=== PATIENT | female | born 1960 | race Caucasian/White ===

== ENCOUNTER 2021-08-09 15:28 | Outpatient (CLI) | payer MEDICARE, MEDICAID, SELFPAY ==
--- NOTE | 2021-08-09 15:35 | XRR_ITS ---
PROCEDURE INFORMATION: Exam: XR Right Ribs Exam date and time: 08/09/2021 3:35 PM Age: 61 years old Clinical indication: Pain and injury or trauma; Fall; Rib area; Sprain or strain; Painful respiration; Additional info: Pain after fall TECHNIQUE: Imaging protocol: XR Right ribs. Views: 2 views. COMPARISON: CR Chest 1 [place] [id number] 04/21/2018 10:42 AM FINDINGS: Bones/joints: Subtle cortical irregularity in the lateral right 5th rib. The other bones appear intact.. Soft tissues: Normal. XR/XR ribs RT 2V* [id number] IMPRESSION: Age indeterminate lateral right 5th rib fracture.
== END 2021-08-09 15:29 | disposition home or self-care (01) ==
LOC: RAD 15:33
PROVIDERS: PCP Nurse Practitioner; Visit Provider Nurse Practitioner
DX: S22.31XA Fracture of one rib, right side, initial encounter for closed fracture (principal); W19.XXXA Unspecified fall, initial encounter
CPT/HCPCS: 71100

== ENCOUNTER 2022-01-22 13:20 | Emergency (ER) | payer MEDICARE, MEDICAID, SELFPAY ==
[2022-01-22 13:26] VITALS: BP 162/98; PULSE 84; RESP 20; TEMP 36.6; O2SAT 97; BMI 23.1
[2022-01-22 13:55] VITALS: BP 129/83; PULSE 73; RESP 16; O2SAT 96
--- NOTE | 2022-01-22 13:55 | ED_ITS ---
Documented by User: PRECIOUS Padilla 01/22/22 15:30 HPI - Abdominal Pain General: Chief Complaint: Abdominal Pain Stated Complaint: abdomen pain , back pain Time Seen by Provider: 01/22/22 13:23 History of Present Illness: Patient is a 61-year-old female comes to the ED with abdominal pain and nausea. Symptoms started approximately 1 week ago. Abdominal pain is located in the periumbilical and epigastric region of the abdomen and it radiates to her back. She rates the pain currently a 6 out of 10. She is nauseous and says eating any food causes worsening pain and nausea. Denies any fevers, emesis, denies any blood in the stool, diarrhea, constipation or bladder symptoms. She has never had abdominal pain like this before. History of 4 C-sections and an appendectomy. Patient is a daily tobacco smoker and she also has 3 cups of coffee daily as well. History of acid reflux, but is not on any medication for acid reflux currently. Associated Symptoms: Reports nausea; Denies chills, constipation, diarrhea, dysuria, fever(s), hematochezia, hematuria and vomiting Review of Systems Const: Denies: fever(s), chills or fatigue Eyes: Denies: change in vision or eye discomfort ENMT: Denies: throat pain, odynophagia, nasal discharge or nasal congestion Card: Denies: chest pain, palpitations, edema, swelling of feet/ankles, dyspnea on exertion or orthopnea Resp: Denies: dyspnea, productive cough or non-productive cough GI: Reports: abdominal pain and nausea; Denies: vomiting, diarrhea, constipation or hematochezia : Denies: flank pain, dysuria or hematuria Musc: Denies: neck pain, back pain or extremity swelling Skin/Breast: Denies: rash or new lesions Neuro: Denies: headache(s), numbness in extremities or weakness in extremities PFSH ED PFSH: Medical History No pertinent family history Surgical History History of appendectomy History of section Social History Smoking and tobacco status: current every day smoker Physical Exam Const: COMMON NORMALS: no acute distress, patient oriented x3, healthy appearing and alert GENERAL APPEARANCE: cooperative and comfortable HENMT: COMMON NORMALS: normocephalic HEAD & SCALP: normocephalic MOUTH: Normal oral and palatal mucosa present THROAT: posterior oropharynx normal and uvula midline Eye: COMMON NORMALS: Equal, round and reactive pupils present and conjunctivae normal CONJUNCTIVA: Yes conjunctivae normal PUPIL: Yes Equal, round and reactive pupils present Neck/C-Spine: COMMON NORMALS: supple GENERAL: Yes normal visual inspection Resp: COMMON NORMALS: normal respiratory effort, No retractions, No use of accessory muscles and clear to auscultation bilaterally AUSCULTATION: clear to auscultation bilaterally Cardio: COMMON NORMALS: regular rate, regular rhythm, S1 normal heart sound present, S2 normal heart sound present, No gallops present (Cardio), No clicks present (Cardio), No murmurs present (Cardio) and Peripheral pulses 2+ t hroughout RATE: regular rate RHYTHM: regular rhythm HEART SOUNDS: S1 normal heart sound present and S2 normal heart sound present PERIPHERAL PULSES: Peripheral pulses 2+ throughout GI: COMMON NORMALS: Normal to inspection, nondistended, normoactive bowel sounds present, Soft to palpation and no masses PALPATION: Yes Soft to palpation, Yes Tenderness to palpation present (GI) Details: other ( epigastric and periumbilical mild tenderness) and No Guarding due to palpation present (GI) : COMMON NORMALS: Yes no CVA tenderness BLADDER/KIDNEY EXAM: Yes no CVA tenderness Back/Pelvis: COMMON NORMALS: no CVA tenderness Extremity: COMMON NORMALS: normal to inspection Neuro: COMMON NORMALS: patient oriented x3 SENSORIUM/ORIENTATION: Yes alert GAIT: Yes Normal gait present Skin: GENERAL SKIN EXAM: dry skin Course Vital Signs: Vital signs: Vital Signs Temperature 97.9 F 01/22/22 13:26 Pulse Rate 73 01/22/22 15:50 Respiratory Rate 16 01/22/22 15:50 Blood Pressure 129/83 01/22/22 15:50 Pulse Oximetry 96 01/22/22 15:50 MDM - Abdominal Pain Medical Decision Making Patient is a 61-year-old female who comes to the ED with abdominal pain. Abdominal pain is in the periumbilical/epigastric region and radiates to her back. Pains been going on now for a week and she describes it as mild to moderate pain rated at 6 out of 10 here in the ED. Worsens after eating food. Denies any vomiting but endorses nausea. Vitals are stable. Exam of patient shows a healthy nontoxic 61-year-old female in no acute distress or pain. She has some mild tenderness in the epigastric/periumbilical region of the abdomen with no guarding noted. Labs are unremarkable. CT of abdomen pelvis showed no acute findings. Abdominal pain likely due to gastritis. She is stable for discharge home and outpatient treatment with pantoprazole and some Zofran for nausea. She was told to follow-up with her PCP in the next week for reevaluation. Return to ED precautions given. Patient understood and agreed with plan. Lab Data I reviewed the patient's lab results. : 01/22/22 14:14 01/22/22 14:14 Labs/Radiology: Radiology Impressions Abdomen/Pelvis CT 01/22/22 14:32 IMPRESSION: 1. No acute findings. 2. Incidental findings above. Laboratory Results WBC 8.5 10^3/uL (4.0-10.0) 01/22/22 14:14 RBC 5.07 10^6/uL (4.1-5.3) 01/22/22 14:14 Hgb 14.7 g/dL (11.5-15.3) 01/22/22 14:14 Hct 44.1 % (37.0-47.0) 01/22/22 14:14 MCV 87.0 fl (81-99) 01/22/22 14:14 MCH 29.0 pg (28.0-34.0) 01/22/22 14:14 MCHC 33.3 g/dL (30.0-36.0) 01/22/22 14:14 RDW 13.7 % (12.1-15.1) 01/22/22 14:14 Plt Count 216 10^3/cmm (130-400) 01/22/22 14:14 MPV 9.8 fL (7.4-10.4) 01/22/22 14:14 Neut % (Auto) 62.9 % 01/22/22 14:14 Lymph % (Auto) 25.8 % 01/22/22 14:14 [place] % (Auto) 8.0 % 01/22/22 14:14 Eos % (Auto) 2.6 % 01/22/22 14:14 Baso % (Auto) 0.5 % 01/22/22 14:14 Neut # (Auto) 5.33 10^3/uL (1.8-7.7) 01/22/22 14:14 Lymph # (Auto) 2.2 10^3/uL (0.8-4.8) 01/22/22 14:14 [place] # (Auto) 0.7 10^3/uL (0.2-0.9) 01/22/22 14:14 Eos # (Auto) 0.2 10^3/uL (0.0-0.8) 01/22/22 14:14 Baso # (Auto) 0.0 10^3/uL (0.0-0.1) 01/22/22 14:14 Nucleated RBC % (auto) 0 % 01/22/22 14:14 Nucleated RBCs # 0.0 /100WBC 01/22/22 14:14 Sodium 137 mmol/L (136-145) 01/22/22 14:14 Potassium 4.0 mmol/L (3.5-5.1) 01/22/22 14:14 Chloride 101 mmol/L (98-107) 01/22/22 14:14 Carbon Dioxide 23 mmol/L (22-29) 01/22/22 14:14 Anion Gap 17.0 (5-19) 01/22/22 14:14 BUN 9 mg/dL (8-23) 01/22/22 14:14 Creatinine 0.5 mg/dL (0.5-0.9) 01/22/22 14:14 GFR Calculation 124.6 mL/min (90-130) 01/22/22 14:14 Glucose 102 mg/dL (65-115) 01/22/22 14:14 Calculated Osmolality 283 mOsm/kg (285-295) L 01/22/22 14:14 Calcium 9.2 mg/dL (8.5-10.5) 01/22/22 14:14 Total Bilirubin 0.3 mg/dL (0.15-1.2) 01/22/22 14:14 AST 30 U/L (0-32) 01/22/22 14:14 ALT 41 U/L (0-33) H 01/22/22 14:14 Alkaline Phosphatase 71 IU/L (35-105) 01/22/22 14:14 Total Protein 7.1 g/dL (6.6-8.7) 01/22/22 14:14 Albumin 4.2 g/dL (3.5-5.2) 01/22/22 14:14 Globulin 2.9 g/dL (1.3-4.6) 01/22/22 14:14 Lipase 22 U/L (13-60) 01/22/22 14:14 Urine Color Straw (Yellow) 01/22/22 14:01 Urine Appearance Clear (CLEAR) 01/22/22 14:01 Urine pH 7 (5-7) 01/22/22 14:01 Ur Specific [place] 1.000 (1.005-1.030) L 01/22/22 14:01 Urine Protein Neg (Negative) 01/22/22 14:01 Urine Glucose (UA) Norm (Normal) 01/22/22 14:01 Urine Ketones Negative (Negative) 01/22/22 14:01 Urine Blood Neg (Negative) 01/22/22 14:01 Urine Nitrate Negative (Negative) 01/22/22 14:01 Urine Bilirubin Neg (Negative) 01/22/22 14:01 Urine Urobilinogen Norm mg/dL (Negative) 01/22/22 14:01 Ur Leukocyte Esterase Negative (Negative) 01/22/22 14:01 Discharge Plan Discharge Patient Disposition: Home Clinical Impression: Abdominal pain Qualifiers: Abdominal location: epigastric Qualified Code(s): R10.13 - Epigastric pain Condition: Stable Prescriptions: New pantoprazole 40 mg tablet,delayed release (DR/EC) 40 mg PO DAILY 28 Days Qty: 30 0RF ondansetron 4 mg tablet,disintegrating 4 mg PO Q8H PRN (Reason: nausea and vomiting) Qty: 15 0RF No Action albuterol sulfate 90 mcg/actuation HFA aerosol inhaler 2 puff inhalation QID PRN (Reason: Shortness Of Breath) 0RF atorvastatin 40 mg tablet 40 mg PO DAILY 0RF ipratropium-albuterol 0.5 mg-3 mg(2.5 mg base)/3 mL solution for nebulization 3 ml INHALATION Q6H PRN (Reason: Shortness Of Breath) 0RF lorazepam 0.5 mg tablet 0.5 mg PO TID PRN (Reason: Anxiety) 0RF Breo Ellipta 100-25 mcg/dose blister with device 1 ea INHALATION DAILY 0RF Discharge Orders: Discharge ED (Routine); Ordered 01/22/22 Ordered By: Jered Lee Referrals: Ling Sams FNP [Nurse Practitioner] - Discharge Diet: Regular Discharge Activity: Increase activity as tolerated Patient Instructions: Gastritis (ED), GERD (Gastroesophageal Reflux Disease) (DC), Abdominal Pain (ED) Activity Restrictions/Additional Instructions: Follow-up with medical provider as directed in the next week for reevaluation. Take medications as prescribed. Return to the ER or your medical provider if condition worsens. Please read and understand discharge instructions. Thank you for choosing [facility] for your healthcare needs today. Please realize this is an emergency room and that we are providing you with a medical screening exam and this may not be complete and all inclusive of all the testing and or work up that you may need to determine your ailment or severity of your illness. It is very important that you follow up as instructed or that you return to the Emergency Department should you have concerns or if your condition changes or worsens in any way. Coding Level of Care Code ED Informatics Nurse Specialist for [facility] Exam Comprehensive Documented by User: Terence Rollins DO 01/25/22 07:19 HPI - Abdominal Pain General: Chief Complaint: Abdominal Pain Stated Complaint: abdomen pain , back pain Time Seen by Provider: 01/22/22 13:23 [facility] ED PFSH: Medical History No pertinent family history Surgical History History of appendectomy History of section Social History Smoking and tobacco status: current every day smoker Course Vital Signs: Vital signs: Vital Signs Temperature 97.9 F 01/22/22 13:26 Pulse Rate 73 06/03/22 15:50 Respiratory Rate 16 01/22/22 15:50 Blood Pressure 129/83 01/22/22 15:50 Pulse Oximetry 96 01/22/22 15:50 MDM - Abdominal Pain Medical Decision Making Patient is a 61-year-old female who comes to the ED with abdominal pain. Abdominal pain is in the periumbilical/epigastric region and radiates to her b ack. Pains been going on now for a week and she describes it as mild to moderate pain rated at 6 out of 10 here in the ED. Worsens after eating food. Denies any vomiting but endorses nausea. Vitals are stable. Exam of patient shows a healthy nontoxic 61-year-old female in no acute distress or pain. She has some mild tenderness in the epigastric/periumbilical region of the abdomen with no guarding noted. Labs are unremarkable. CT of abdomen pelvis showed no acute findings. Abdominal pain likely due to gastritis. She is stable for discharge home and outpatient treatment with pantoprazole and some Zofran for nausea. She was told to follow-up with her PCP in the next week for reevaluat ion. Return to ED precautions given. Patient understood and agreed with plan. Chart reviewed and patient discussed with midlevel. Agree with assessment and plan. Lab Data : 01/22/22 14:14 01/22/22 14:14 Labs/Radiology: Radiology Impressions Abdomen/Pelvis CT 01/22/22 14:32 IMPRESSION: 1. No acute findings. 2. Incidental findings above. Laboratory Results WBC 8.5 10^3/uL (4.0-10.0) 01/22/22 14:14 RBC 5.07 10^6/uL (4.1-5.3) 01/22/22 14:14 Hgb 14.7 g/dL (11.5-15.3) 01/22/22 14:14 Hct 44.1 % (37.0-47.0) 01/22/22 14:14 MCV 87.0 fl (81-99) 01/22/22 14:14 MCH 29.0 pg (28.0-34.0) 01/22/22 14:14 MCHC 33.3 g/dL (30.0-36.0) 01/22/22 14:14 RDW 13.7 % (12.1-15.1) 01/22/22 14:14 Plt Count 216 10^3/cmm (130-400) 01/22/22 14:14 MPV 9.8 fL (7.4-10.4) 01/22/22 14:14 Neut % (Auto) 62.9 % 01/22/22 14:14 Lymph % (Auto) 25.8 % 01/22/22 14:14 [place] % (Auto) 8.0 % 01/22/22 14:14 Eos % (Auto) 2.6 % 01/22/22 14:14 Baso % (Auto) 0.5 % 01/22/22 14:14 Neut # (Auto) 5.33 10^3/uL (1.8-7.7) 01/22/22 14:14 Lymph # (Auto) 2.2 10^3/uL (0.8-4.8) 01/22/22 14:14 [place] # (Auto) 0.7 10^3/uL (0.2-0.9) 01/22/22 14:14 Eos # (Auto) 0.2 10^3/uL (0.0-0.8) 01/22/22 14:14 Baso # (Auto) 0.0 10^3/uL (0.0-0.1) 01/22/22 14:14 Nucleated RBC % (auto) 0 % 01/22/22 14:14 Nucleated RBCs # 0.0 /100WBC 01/22/22 14:14 Sodium 137 mmol/L (136-145) 01/22/22 14:14 Potassium 4.0 mmol/L (3.5-5.1) 01/22/22 14:14 Chloride 101 mmol/L (98-107) 01/22/22 14:14 Carbon Dioxide 23 mmol/L (22-29) 01/22/22 14:14 Anion Gap 17.0 (5-19) 01/22/22 14:14 BUN 9 mg/dL (8-23) 01/22/22 14:14 Creatinine 0.5 mg/dL (0.5-0.9) 01/22/22 14:14 GFR Calculation 124.6 mL/min (90-130) 01/22/22 14:14 Glucose 102 mg/dL (65-115) 01/22/22 14:14 Calculated Osmolality 283 mOsm/kg (285-295) L 01/22/22 14:14 Calcium 9.2 mg/dL (8.5-10.5) 01/22/22 14:14 Total Bilirubin 0.3 mg/dL (0.15-1.2) 01/22/22 14:14 AST 30 U/L (0-32) 01/22/22 14:14 ALT 41 U/L (0-33) H 01/22/22 14:14 Alkaline Phosphatase 71 IU/L (35-105) 01/22/22 14:14 Total Protein 7.1 g/dL (6.6-8.7) 01/22/22 14:14 Albumin 4.2 g/dL (3.5-5.2) 01/22/22 14:14 Globulin 2.9 g/dL (1.3-4.6) 01/22/22 14:14 Lipase 22 U/L (13-60) 01/22/22 14:14 Urine Color Straw (Yellow) 01/22/22 14:01 Urine Appearance Clear (CLEAR) 01/22/22 14:01 Urine pH 7 (5-7) 01/22/22 14:01 Ur Specific [place] 1.000 (1.005-1.030) L 01/22/22 14:01 Urine Protein Neg (Negative) 01/22/22 14:01 Urine Glucose (UA) Norm (Normal) 01/22/22 14:01 Urine Ketones Negative (Negative) 01/22/22 14:01 Urine Blood Neg (Negative) 01/22/22 14:01 Urine Nitrate Negative (Negative) 01/22/22 14:01 Urine Bilirubin Neg (Negative) 01/22/22 14:01 Urine Urobilinogen Norm mg/dL (Negative) 01/22/22 14:01 Ur Leukocyte Esterase Negative (Negative) 01/22/22 14:01 Discharge Plan Discharge Patient Disposition: Home Clinical Impression: Abdominal pain Qualifiers: Abdominal location: epigastric Qualified Code(s): R10.13 - Epigastric pain Condition: Stable Prescriptions: New pantoprazole 40 mg tablet,delayed release (DR/EC) 40 mg PO DAILY 28 Days Qty: 30 0RF ondansetron 4 mg tablet,disintegrating 4 mg PO Q8H PRN (Reason: nausea and vomiting) Qty: 15 0RF No Action albuterol sulfate 90 mcg/actuation HFA aerosol inhaler 2 puff inhalation QID PRN (Reason: Shortness Of Breath) 0RF atorvastatin 40 mg tablet 40 mg PO DAILY 0RF ipratropium-albuterol 0.5 mg-3 mg(2.5 mg base)/3 mL solution for nebulization 3 ml INHALATION Q6H PRN (Reason: Shortness Of Breath) 0RF lorazepam 0.5 mg tablet 0.5 mg PO TID PRN (Reason: Anxiety) 0RF Breo Ellipta 100-25 mcg/dose blister with device 1 ea INHALATION DAILY 0RF Discharge Orders: Discharge ED (Routine); Ordered 01/22/22 Ordered By: Jered Lee Referrals: Ling Sams FNP [Nurse Practitioner] - Discharge Diet: Regular Discharge Activity: Increase activity as tolerated Patient Instructions: Gastritis (ED), GERD (Gastroesophageal Reflux Disease) (DC), Abdominal Pain (ED) Activity Restrictions/Additional Instructions: Follow-up with medical provider as directed in the next week for reevaluation. Take medications as prescribed. Return to the ER or your medical provider if condition worsens. Please read and understand discharge instructions. Thank you for choosing [facility] for your healthcare needs today. Please realize this is an emergency room and that we are providing you with a medical screening exam and this may not be complete and all inclusive of all the testing and or work up that you may need to determine your ailment or severity of your illness. It is very important that you follow up as instructed or that you return to the Emergency Department should you have concerns or if your condition changes or worsens in any way. Coding Level of Care Code ED Informatics Nurse Specialist for [facility] Exam Comprehensive
[2022-01-22 14:24] LABS: Add Urine Microscopic? NO; Charge for UA Resulting for Rev
[2022-01-22 14:30] LABS: Basophils % 0.5 %; Eosinophils # 0.2 10^3/uL (0.0-0.8); Eosinophils % 2.6 %; Hematocrit 44.1 % (37.0-47.0); Hemoglobin 14.7 g/dL (11.5-15.3); Lymphocytes # 2.2 10^3/uL (0.8-4.8); Lymphocytes % 25.8 %; Mean Corpuscular HGB Conc 33.3 g/dL (30.0-36.0); Mean Platelet Volume 9.8 fL (7.4-10.4); Monocytes # 0.7 10^3/uL (0.2-0.9); Neutrophils # 5.33 10^3/uL (1.8-7.7); Neutrophils % 62.9 %; Nucleated Red Blood Cells % 0 %; Platelet Count 216 10^3/cmm (130-400); Red Blood Count 5.07 10^6/uL (4.1-5.3); Red Cell Distribution Width 13.7 % (12.1-15.1); White Blood Count 8.5 10^3/uL (4.0-10.0)
--- NOTE | 2022-01-22 14:32 | CTR_ITS ---
PROCEDURE INFORMATION: Exam: CT Abdomen And Pelvis Without Contrast Exam date and time: 01/22/2022 2:40 PM Age: 61 years old Clinical indication: Abdominal pain; Prior surgery; Surgery date: 6+ months; Surgery type: Appx, 3 c-sections, lumbar; Additional info: Epigastric/periumbilical pain with nausea, past appendectomy TECHNIQUE: Imaging protocol: Computed tomography of the abdomen and pelvis without contrast. Radiation optimization: All CT scans at this facility use at least one of these dose optimization techniques: automated exposure control; mA and/or kV adjustment per patient size (includes targeted exams where dose is matched to clinical indication); or iterative reconstruction. COMPARISON: CR Hip 2-3v LEFT wwo Pelv* [id number] 02/28/2017 2:17 PM RADIATION DOSE METRICS: Total DLP (mGy-cm): 1203.9 FINDINGS: Lungs: There is centrilobular emphysema visible at the lung bases. Liver: The liver is normal. Gallbladder and bile ducts: The gallbladder is normal. There is no biliary dilation. Pancreas: The pancreas is unremarkable. Spleen: The spleen is unremarkable. Adrenal glands: The adrenal glands are unremarkable. Kidneys and ureters: There are punctate nonobstructive stones at the lower pole of the left kidney measuring less than 2 mm. There is no hydronephrosis or ureteral dilation. The right kidney and ureter are unremarkable. Stomach and bowel: The stomach is decompressed, preventing meaningful evaluation of wall thickness. The small bowel is nondilated. The colon is unremarkable. Appendix: The appendix is absent. Intraperitoneal space: There is no free air or significant intraperitoneal free fluid. Vasculature: There is mild aortic atherosclerotic disease. Lymph nodes: There is no lymphadenopathy in the retroperitoneum, mesentery, pelvis or inguinal regions. Urinary bladder: The urinary bladder is unremarkable. Reproductive: The uterus is unremarkable. There is no adnexal mass or large cyst. Bones/joints: The lumbar spine, pelvis and hips are unremarkable. Soft tissues: The abdominal wall is intact. CT/CT abdomen pelvis wo con [id number] IMPRESSION: 1. No acute findings. 2. Incidental findings above.
[2022-01-22 14:45] LABS: Alanine Aminotransferase 41 U/L (0-33); Albumin Level 4.2 g/dL (3.5-5.2); Alkaline Phosphatase 71 IU/L (35-105); Aspartate Amino Transferase 30 U/L (0-32); Blood Urea Nitrogen 9 mg/dL (8-23); Calcium 9.2 mg/dL (8.5-10.5); Carbon Dioxide 23 mmol/L (22-29); Chloride 101 mmol/L (98-107); Globulin 2.9 g/dL (1.3-4.6); Glomerular Filtration Rate 124.6 mL/min (90-130); Glucose 102 mg/dL (65-115); Lipase 22 U/L (13-60); Osmolality Calculated 283 mOsm/kg (285-295); Sodium 137 mmol/L (136-145); Total Bilirubin 0.3 mg/dL (0.15-1.2); Total Protein 7.1 g/dL (6.6-8.7)
[2022-01-22 15:05] LABS: Bilirubin Urine Neg (Negative); Blood Urine Neg (Negative); Glucose Urine UA Norm (Normal); Ketones Urine Negative (Negative); Leukocyte Esterase Urine Negative (Negative); Nitrate Urine Negative (Negative); Protein Urine Neg (Negative); Urine Appearance Clear (CLEAR); Urine Color Straw (Yellow); Urobilinogen Urine Norm (Negative); pH Urine 7 (5-7)
[2022-01-22 15:50] VITALS: BP 129/83; PULSE 73; RESP 16; O2SAT 96
== END 2022-01-22 15:52 | disposition home or self-care (01) ==
PROVIDERS: Emergency Provider Physician Assistant
DX: R10.13 Epigastric pain (principal); Z90.89 Acquired absence of other organs; Z90.710 Acquired absence of both cervix and uterus
CPT/HCPCS: 74176; 80053; 81003; 83690; 85025; 99283

== ENCOUNTER 2022-04-10 21:56 | Emergency (ER) | payer MEDICARE, MEDICAID, SELFPAY ==
[2022-04-10 22:05] VITALS: BP 136/76; PULSE 73; RESP 16; TEMP 36.6; O2SAT 98; BMI 22.7
--- NOTE | 2022-04-10 22:14 | XRR_ITS ---
PROCEDURE INFORMATION: Exam: XR Left Hand Exam date and time: 04/10/2022 10:42 PM Age: 61 years old Clinical indication: Injury or trauma; Fall; Blunt trauma (contusions or hematomas); Injury date: 04-10-22; Injury details: Fell and tripped over pavement, swollen, bruised left hand/fingers 4-5 meta carpals TECHNIQUE: Imaging protocol: Radiologic exam of the Left hand. Views: 3 or more views. COMPARISON: CR Elbow 2 views, LEFT [id number] 02/28/2017 2:46 PM FINDINGS: Bones/joints: Chronic appearing healed displaced distal 5th metacarpal fracture with residual deformity. Soft tissues: Normal. XR/XR hand LT min 3V* [id number] IMPRESSION: Chronic appearing healed displaced distal 5th metacarpal fracture with residual deformity.
--- NOTE | 2022-04-10 22:14 | XRR_ITS ---
PROCEDURE INFORMATION: Exam: XR Left Knee Exam date and time: 04/10/2022 10:42 PM Age: 61 years old Clinical indication: Injury or trauma; Fall; Blunt trauma; Injury date: 04-10-22; Injury details: Fell and tripped over pavement, bruised and swollen left knee TECHNIQUE: Imaging protocol: Radiologic exam of the Left knee. Views: 1 or 2 views. COMPARISON: CR Knee 3 views, LEFT* [id number] 02/28/2017 2:17 PM FINDINGS: Bones/joints: Moderate lateral knee compartment primary osteoarthritis. Mild medial knee compartment primary osteoarthritis. Soft tissues: Normal. XR/XR knee LT 1-2V [id number] IMPRESSION: No acute findings.
--- NOTE | 2022-04-10 22:15 | XRR_ITS ---
PROCEDURE INFORMATION: Exam: XR Left Shoulder Exam date and time: 04/10/2022 10:42 PM Age: 61 years old Clinical indication: Injury or trauma; Fall; Blunt trauma (contusions or hematomas); Left; Injury date: 04-10-22; Injury details: Fell and tripped over pavement, pulled shoulder TECHNIQUE: Imaging protocol: Radiologic exam of the Left shoulder. Views: 2 or more views. COMPARISON: CR Shoulder 2+ views LEFT* [id number] 02/28/2017 2:17 PM FINDINGS: Bones/joints: Normal. Soft tissues: Normal. XR/XR shoulder LT min 2V* [id number] IMPRESSION: No acute findings.
--- NOTE | 2022-04-10 23:12 | CTR_ITS ---
PROCEDURE INFORMATION: Exam: CT Head Without Contrast Exam date and time: 04/10/2022 11:37 PM Age: 61 years old Clinical indication: Injury or trauma; Fall; Blunt trauma (contusions or hematomas); Without loss of consciousness; Injury date: 04-10-22; Injury details: Fell and tripped over pavement, hit left side forehead, abrasion; Additional info: Fall and hit head on pavement, no loc TECHNIQUE: Imaging protocol: Computed tomography of the head without contrast. Radiation optimization: All CT scans at this facility use at least one of these dose optimization techniques: automated exposure control; mA and/or kV adjustment per patient size (includes targeted exams where dose is matched to clinical indication); or iterative reconstruction. COMPARISON: No relevant prior studies available. RADIATION DOSE METRICS: Total DLP (mGy-cm): 966.58 FINDINGS: Brain: Normal. No hemorrhage. Unremarkable white matter. No mass effect. Cerebral ventricles: No ventriculomegaly. Paranasal sinuses: Visualized sinuses are unremarkable. No fluid levels. Mastoid air cells: Visualized mastoid air cells are well aerated. Bones/joints: Unremarkable. No acute fracture. Soft tissues: Unremarkable. CT/CT head wo con* [id number] IMPRESSION: No acute intracranial abnormality.
--- NOTE | 2022-04-10 23:13 | ED_ITS ---
Documented by User: PRECIOUS Padilla 04/11/22 02:47 HPI - Fall General: Chief Complaint: Fall Stated Complaint: Fall, face lac Time Seen by Provider: 04/10/22 23:01 History of Present Illness: Patient is a 61-year-old female who comes to the ED after fall. Fall occurred just prior to arrival. Patient says she tripped over some raised pavement when she was walking to get into her car. She fell face first and her forehead hit the pavement. She reports feeling little out of it and nauseous immediately after fall. Denies any loss of consciousness. She reports having some left knee pain, left shoulder pain and left hand pain since fall. Her left hand is swollen and bruised over the fourth and fifth metacarpals and she rates her left hand pain currently 9 out of 10. She also has a laceration to her left forehead just above her left eye. Endorses some blurry vision in her left eye. Denies any numbness tingling or weakness to her face or extremities, headache, neck pain. Patient states she is not on any blood thinners. Patient has family in ED room with her and they witnessed fall and says patient's head hit the ground first. Patient has not taken any at home [id number] medication for pain before coming to the ED. patient says she is up-to-date on her tetanus. Associated symptoms-after fall: Denies abdominal pain, chest pain, headache(s), hematuria or neck pain Review of Systems Const: Denies: fever(s), chills or fatigue Eyes: Denies: change in vision or eye discomfort ENMT: Denies: throat pain, odynophagia, nasal discharge or nasal congestion Card: Denies: chest pain, palpitations, edema, swelling of feet/ankles, dyspn ea on exertion or orthopnea Resp: Denies: dyspnea, productive cough or non-productive cough GI: Denies: abdominal pain, nausea, vomiting, diarrhea, constipation or hematochezia : Denies: flank pain, dysuria or hematuria Musc: Reports: extremity pain (Left hand, left shoulder and left knee), extremity swelling (Left hand) and limited range of motion (Left hand-fourth and fifth digits); Denies: neck pain or back pain Skin/Breast: Reports: new lesions (Left forehead laceration); Denies: rash Neuro: Denies: headache(s), numbness in extremities or weakness in extremities PFSH ED PFSH: Medical History No pertinent family history Surgical History History of appendectomy History of section Social History Smoking and tobacco status: current every day smoker Physical Exam Const: COMMON NORMALS: no acute distress, patient oriented x3 and alert GENERAL APPEARANCE: cooperative and comfortable HENMT: COMMON NORMALS: normocephalic HEAD & SCALP: normocephalic; no Doe's sign and no raccoon eyes FACE & SINUS: edema on the left periorbital and laceration left above eyebrow irregular and superficial; not actively bleeding Facial laceration size: 1 cm MOUTH: Normal oral and palatal mucosa present THROAT: posterior oropharynx normal and uvula midline Eye: COMMON NORMALS: Equal, round and reactive pupils present, EOMs intact bilaterally and conjunctivae normal PERIORBITAL: periorbital findings abnormal positive left periorbital swelling and periorbital ecchymosis CONJUNCTIVA: Yes conjunctivae normal PUPIL: Yes Equal, round and reactive pupils present Neck/C-Spine: COMMON NORMALS: supple GENERAL: Yes normal visual inspection Resp: COMMON NORMALS: normal respiratory effort, No retractions, No use of accessory muscles and clear to auscultation bilaterally AUSCULTATION: clear to auscultation bilaterally Cardio: COMMON NORMALS: regular rate, regular rhythm, S1 normal heart sound present, S2 normal heart sound present, No gallops present (Cardio), No clicks present (Cardio), No murmurs present (Cardio) and Peripheral pulses 2+ throughout RATE: regular rate RHYTHM: regular rhythm HEART SOUNDS: S1 normal heart sound present and S2 normal heart sound present PERIPHERAL PULSES: Peripheral pulses 2+ throughout GI: COMMON NORMALS: Normal to inspection, nondistended, normoactive bowel sounds present, Soft to palpation, non-tender and no masses PALPATION: Yes Soft to palpation : COMMON NORMALS: Yes no CVA tenderness BLADDER/KIDNEY EXAM: Yes no CVA tenderness Back/Pelvis: COMMON NORMALS: no CVA tenderness Neuro: COMMON NORMALS: patient oriented x3, CN's II-XII intact bilaterally, moves all extremities, no focal motor deficits, no sensory deficits noted and gait normal SENSORIUM/ORIENTATION: Yes alert COORDINATION/BALANCE: [id number] test normal GAIT: Yes Normal gait present COORDINATION: [id number] test normal Skin: GENERAL SKIN EXAM: dry skin Procedures Laceration Laceration 1: Site: face (above left eyebrow) Side (If applicable): left Size (cm): 1 Description: irregular (y shaped) and clean Depth: simple, single layer Local Anesthetic: lidocaine 1% Amount of anesthesia used (mL): 3 Pre-repair: irrigated extensively (With normal saline) Skin layer closed with: nylon Size (cm): 5-0 Number of sutures: 5 Technique: simple, interrupted Course Vital Signs: Vital signs: Vital Signs Temperature 97.8 F 04/10/22 22:05 Pulse Rate 73 04/10/22 22:05 Respiratory Rate 16 04/10/22 22:05 Blood Pressure 136/76 04/10/22 22:05 Pulse Oximetry 98 04/10/22 22:05 Oxygen Delivery Me thod 04/10/22 22:05 MDM - Fall Medical Decision Making Patient is a 61-year-old female comes to the ED after having a fall. Denies any loss of consciousness. She has laceration to her left forehead, left knee pain, left hand pain and left shoulder pain. Most of her pain is in her left hand and she has significant swelling and ecchymosis of fourth and fifth metacarpal region of hand. Neurovascular tact. Neuro exam shows no deficits. Vitals are stable. Patient is up-to-date on her tetanus. For her laceration was irrigated extensively with normal saline and lidocaine 1% was used as local. 5 sutures were then placed to close laceration on forehead. CT of head showed no acute findings. X-ray of left knee and left shoulder showed no acute findings. X-ray of left hand showed a displaced fifth metacarpal head fracture. I placed order with case management for patient be referred to Ortho for follow-up. Patient was put in a ulnar gutter splint and was discharged home. She was diagnosed with metacarpal fracture, facial laceration due to fall. She was instructed on how to care for facial laceration to have sutures removed in 5 days. She was sent home with a prescription for hydrocodone for pain. Return to ED precautions given. Patient understood agree with plan. Lab Data Radiology Impressions Hand X-Ray 04/10/22 22:14 IMPRESSION: Chronic appearing healed displaced distal 5th metacarpal fracture with residual deformity. Knee X-Ray 04/10/22 22:14 IMPRESSION: No acute findings. Shoulder X-Ray 04/10/22 22:15 IMPRESSION: No acute findings. Head CT 04/10/22 23:12 IMPRESSION: No acute intracranial abnormality. Discharge Plan Discharge Patient Disposition: Home Clinical Impression: Fracture, metacarpal Qualifiers: Encounter type: initial encounter Metacarpal bone: fifth Fracture type: closed Metacarpal location: other portion of metacarpal Fracture alignment: displaced Laterality: left Qualified Code(s): S62.397A - Other fracture of fifth metacarpal bone, left hand, initial encounter for closed fracture Facial laceration Qualifiers: Encounter type: initial encounter Qualified Code(s): S01.81XA - Laceration without foreign body of other part of head, initial encounter Fall with injury Qualifiers: Encounter type: initial encounter Qualified Code(s): W19.XXXA - Unspecified fall, initial encounter Condition: Stable Prescriptions: No Action albuterol sulfate 90 mcg/actuation HFA aerosol inhaler 2 puff inhalation QID PRN (Reason: Shortness Of Breath) atorvastatin 40 mg tablet 40 mg PO DAILY ipratropium-albuterol 0.5 mg-3 mg(2.5 mg base)/3 mL solution for nebulization 3 ml INHALATION Q6H PRN (Reason: Shortness Of Breath) lorazepam 0.5 mg tablet 0.5 mg PO TID PRN (Reason: Anxiety) Breo Ellipta 100-25 mcg/dose blister with device 1 ea INHALATION DAILY ondansetron 4 mg tablet,disintegrating 4 mg PO Q8H PRN (Reason: nausea and vomiting) Qty: 15 0RF Discharge Orders: Discharge ED (Routine); Ordered 04/11/22 Ordered By: Jered Lee Discharge Diet: Regular Discharge Activity: Limit activity as instructed Patient Instructions: Hand Fracture (ED), Facial Laceration (ED), Opioid Safety Activity Restrictions/Additional Instructions: Follow-up with medical provider in 5 days to have sutures removed. Keep laceration site clean daily with soap and water and you can apply thin layer of triple antibiotic ointment on it daily as well. Keep splint on and dry and limit activity with left hand until cleared by Ortho. Case management should be contacting you in the next several days set up an appoint with orthopedic for follow-up. Take medications as prescribed. Return to the ER or your medical provider if condition worsens. Please read and understand discharge instructions. Thank you for choosing [facility] for your healthcare needs today. Please realize this is an emergency room and that we are providing you with a medical screening exam and this may not be complete and all inclusive of all the testing and or work up that you may need to determine your ailment or severity of your illness. It is very important that you follow up as instructed or that you return to the Emergency Department should you have concerns or if your condition changes or worsens in any way. Coding Level of Care Code ED Business Lawyer for [employer] Exam Comprehensive Documented by User: Balbir Gil DO 04/11/22 04:32 HPI - Fall General: Chief Complaint: Fall Stated Complaint: Fall, face lac Time Seen by Provider: 04/10/22 23:01 [facility] ED PFSH: Medical History No pertinent family history Surgical History History of appendectomy History of section Social History Smoking and tobacco status: current every day smoker Course Vital Signs: Vital signs: Vital Signs Temperature 97.8 F 04/10/22 22:05 Pulse Rate 73 04/10/22 22:05 Respiratory Rate 16 04/10/22 22:05 Blood Pressure 136/76 04/10/22 22:05 Pulse Oximetry 98 04/10/22 22:05 Oxygen Delivery Me thod 04/10/22 22:05 MDM - Fall Medical Decision Making Patient is a 61-year-old female comes to the ED after having a fall. Denies any loss of consciousness. She has laceration to her left forehead, left knee pain, left hand pain and left shoulder pain. Most of her pain is in her left hand and she has significant swelling and ecchymosis of fourth and fifth metacarpal region of hand. Neurovascular tact. Neuro exam shows no deficits. Vitals are stable. Patient is up-to-date on her tetanus. For her laceration was irrigated extensively with normal saline and lidocaine 1% was used as local. 5 sutures were then placed to close laceration on forehead. CT of head showed no acute findings. X-ray of left knee and left shoulder showed no acute findings. X-ray of left hand showed a displaced fifth metacarpal head fracture. I placed order with case management for patient be referred to Ortho for follow-up. Patient was put in a ulnar gutter splint and was discharged home. She was diagnosed with metacarpal fracture, facial laceration due to fall. She was instructed on how to care for facial laceration to have sutures removed in 5 days. She was sent home with a prescription for hydrocodone for pain. Return to ED precautions given. Patient understood agree with plan. This patient was originally seen by Mr. Jesus PA-C.? I agree with his history, evaluation, and treatment. Lab Data Radiology Impressions Hand X-Ray 04/10/22 22:14 IMPRESSION: Chronic appearing healed displaced distal 5th metacarpal fracture with residual deformity. Knee X-Ray 04/10/22 22:14 IMPRESSION: No acute findings. Shoulder X-Ray 04/10/22 22:15 IMPRESSION: No acute findings. Head CT 04/10/22 23:12 IMPRESSION: No acute intracranial abnormality. Discharge Plan Discharge Patient Disposition: Home Clinical Impression: Fracture, metacarpal Qualifiers: Encounter type: initial encounter Metacarpal bone: fifth Fracture type: closed Metacarpal location: other portion of metacarpal Fracture alignment: displaced Laterality: left Qualified Code(s): S62.397A - Other fracture of fifth metacarpal bone, left hand, initial encounter for closed fracture Facial laceration Qualifiers: Encounter type: initial encounter Qualified Code(s): S01.81XA - Laceration without foreign body of other part of head, initial encounter Fall with injury Qualifiers: Encounter type: initial encounter Qualified Code(s): W19.XXXA - Unspecified fall, initial encounter Condition: Stable Prescriptions: No Action albuterol sulfate 90 mcg/actuation HFA aerosol inhaler 2 puff inhalation QID PRN (Reason: Shortness Of Breath) atorvastatin 40 mg tablet 40 mg PO DAILY ipratropium-albuterol 0.5 mg-3 mg(2.5 mg base)/3 mL solution for nebulization 3 ml INHALATION Q6H PRN (Reason: Shortness Of Breath) lorazepam 0.5 mg tablet 0.5 mg PO TID PRN (Reason: Anxiety) Breo Ellipta 100-25 mcg/dose blister with device 1 ea INHALATION DAILY ondansetron 4 mg tablet,disintegrating 4 mg PO Q8H PRN (Reason: nausea and vomiting) Qty: 15 0RF Discharge Orders: Discharge ED (Routine); Ordered 04/11/22 Ordered By: Jered Lee Discharge Diet: Regular Discharge Activity: Limit activity as instructed Patient Instructions: Hand Fracture (ED), Facial Laceration (ED), Opioid Safety Activity Restrictions/Additional Instructions: Follow-up with medical provider in 5 days to have sutures removed. Keep laceration site clean daily with soap and water and you can apply thin layer of triple antibiotic ointment on it daily as well. Keep splint on and dry and limit activity with left hand until cleared by Ortho. Case management should be contacting you in the next several days set up an appoint with orthopedic for follow-up. Take medications as prescribed. Return to the ER or your medical provider if condition worsens. Please read and understand discharge instructions. Thank you for choosing [facility] for your healthcare needs today. Please realize this is an emergency room and that we are providing you with a medical screening exam and this may not be complete and all inclusive of all the testing and or work up that you may need to determine your ailment or severity of your illness. It is very important that you follow up as instructed or that you return to the Emergency Department should you have concerns or if your condition changes or worsens in any way. Coding Level of Care Code ED Business Lawyer for [employer] Exam Comprehensive
--- NOTE | 2022-04-13 10:28 | DCPLANNER ---
Addendum entered by Jacqueline Geronimo 04/16/22 14:16: fuel manager received the following message from ortho regarding follow up appointment: Left a vm for the patient to call back and schedule with Dr. Lee. Also called her father and let him know we were trying to reach her Original Note: fuel manager had message to schedule a follow up appointment for patient with ortho. fuel manager sent patients information to the front office staff at ortho. Patients information will be printed and reviewed. Clinic will call patient with appointment information.
== END 2022-04-11 01:33 | disposition home or self-care (01) ==
PROVIDERS: Emergency Provider Physician Assistant
DX: S62.397A Other fracture of fifth metacarpal bone, left hand, initial encounter for closed fracture (principal); S01.01XA Laceration without foreign body of scalp, initial encounter; F17.210 Nicotine dependence, cigarettes, uncomplicated; W18.09XA Striking against other object with subsequent fall, initial encounter
CPT/HCPCS: 12011; 29125; 70450; 73030; 73130; 73560; 99284

== ENCOUNTER 2022-06-29 06:00 | Outpatient (RCR) | payer MEDICARE, MEDICAID, SELFPAY | END 2022-07-21 23:59 | disposition home or self-care (01) | LOC: GOT 06:00 | PROVIDERS: Visit Provider Orthopaedic Surgery Hand Surgery | DX: S62.33 Displaced fracture of neck of other metacarpal bone (principal); X58.XXXS Exposure to other specified factors, sequela | CPT/HCPCS: 97018; 97110; 97140; 97166 ==

== ENCOUNTER 2022-07-22 06:00 | Outpatient (RCR) | payer MEDICARE, MEDICAID, SELFPAY | END 2022-08-21 23:59 | disposition home or self-care (01) | LOC: GOT 06:00 | PROVIDERS: Visit Provider Orthopaedic Surgery Hand Surgery | DX: S62.33 Displaced fracture of neck of other metacarpal bone (principal); X58.XXXS Exposure to other specified factors, sequela | CPT/HCPCS: 97018; 97110; 97140 ==

== ENCOUNTER 2022-08-22 06:00 | Outpatient (RCR) | payer MEDICARE, MEDICAID, SELFPAY | END 2022-09-21 23:59 | disposition home or self-care (01) | LOC: GOT 06:00 | PROVIDERS: Visit Provider Orthopaedic Surgery Hand Surgery | DX: S62.337D Displaced fracture of neck of fifth metacarpal bone, left hand, subsequent encounter for fracture with routine healing (principal); X58.XXXD Exposure to other specified factors, subsequent encounter | CPT/HCPCS: 97018; 97022; 97110; 97140; 97760 ==

== ENCOUNTER 2022-10-27 06:00 | Outpatient (RCR) | payer MEDICARE, MEDICAID, SELFPAY | END 2022-11-19 23:59 | disposition home or self-care (01) | LOC: GPT 06:00 | PROVIDERS: Visit Provider Student in an Organized Health Care Education/Training Program | DX: M25.512 Pain in left shoulder (principal); M25.511 Pain in right shoulder; G89.29 Other chronic pain | CPT/HCPCS: 97110; 97112; 97140; 97161; 97530 ==

== ENCOUNTER 2022-11-20 06:00 | Outpatient (RCR) | payer MEDICARE, MEDICAID, SELFPAY | END 2022-12-19 23:59 | disposition home or self-care (01) | LOC: GPT 06:00 | PROVIDERS: Visit Provider Student in an Organized Health Care Education/Training Program | DX: G89.29 Other chronic pain (principal); M25.511 Pain in right shoulder; M25.512 Pain in left shoulder | CPT/HCPCS: 97110; 97140; 97530 ==

== ENCOUNTER 2022-12-20 06:00 | Outpatient (RCR) | payer MEDICARE, MEDICAID, SELFPAY | END 2023-01-19 23:59 | disposition home or self-care (01) | LOC: GPT 06:00 | PROVIDERS: Visit Provider Student in an Organized Health Care Education/Training Program | DX: M25.511 Pain in right shoulder (principal); M25.512 Pain in left shoulder; G89.29 Other chronic pain | CPT/HCPCS: 97110; 97112; 97164; 97530 ==